=== PATIENT | female | born 1950 | race Caucasian/White ===

== ENCOUNTER 2017-03-07 13:37 | Outpatient (CLI) ==
--- NOTE | 2017-03-09 11:03 | MAMMO ---
EXAM: Bilateral digital screening mammogram History: Screening. Comparison: Bilateral mammogram 01/31/2013 Findings: MLO and CC views of bilateral breasts demonstrate heterogeneously dense breast parenchyma which can obscure small lesions. There are no dominant masses, no suspicious microcalcifications a nd no architectural distortions Impression: Stable negative mammogram. Recommend followup routine screening mammography in 1 year. BIRADS 1
== END 2017-03-07 13:38 | disposition home or self-care (01) ==
LOC: RAD 13:37
PROVIDERS: ATTEND Family Medicine
DX: Z12.31 Encounter for screening mammogram for malignant neoplasm of breast (principal)
CPT/HCPCS: 77067

== ENCOUNTER 2018-05-21 08:48 | Outpatient (CLI) ==
--- NOTE | 2018-05-21 10:37 | MRI ---
EXAM: MRI right shoulder without contrast. HISTORY: Pain. Osteoarthritis. No right shoulder surgery reported. Injury on April 23. Pain rad iating down into arm.. TECHNIQUE: Using a local coil on a high field strength magnet multiplanar multisequence MRI was perf ormed of the right shoulder without intravenous or intra-articular gadolinium contrast.. FINDINGS: I do not have prior radiographs of the right shoulder available for comparison at the time of this dictation. A Type I acromion. Coracoacromial ligament/arch intact without definitive thickening. Mild right ac romioclavicular joint degenerative arthrosis/osteoarthrosis. Deltoid musculature within normal limit s signal intensity. Trace fluid subacromial/subdeltoid bursa. Muscle bulk of the rotator cuff shows no overt atrophy or acute muscle strain. Marked diffuse supras pinatus tendinosis. Tiny insertional fissuring/rim rent tearing. Some bursal sided fraying. Mud Analysis Operator ior there is infraspinatus tendinosis involving cranial fibers with tiny rim rent tear/fissuring as w ell. No full-thickness rotator cuff tear identified. Posterior inferior intact teres minor tendon f ibers. Some degenerative cyst formation posterior greater tuberosity. Anterior intact subscapularis tendon fibers. The long head of the biceps tendon shows intact fibers located in expected position within the bicipital groove with tendinosis/tenosynovitis. The right humeral head within normal limit in morphology and seated. Mild/moderate right glenohumera l joint osteoarthrosis. Joint centered marginal osteophyte formation. Subchondral remodeling/edema/ cyst formation anterior inferior. Right glenohumeral joint effusion. Questionable degeneration of th e posterior-superior right glenoid labrum on this non-arthrographic examination.. IMPRESSION: Mild right acromioclavicular joint degenerative arthrosis/osteoarthrosis. Marked diffuse supraspinatus tendinosis. Tiny insertional fissuring/rim rent tearing. Some bursal s ided fraying. Posterior infraspinatus tendinosis involving cranial fibers with tiny rim rent tear/fi ssuring as well. No full-thickness rotator cuff tear identified. Trace fluid subacromial/subdeltoid bursa may reflect an overlying degree bursitis and/or be sequelae of prior shoulder injection. Ayanna elate clinically. Proximal long head biceps tendinosis/tenosynovitis. Mild/moderate right glenohumeral joint osteoarthrosis. Right glenohumeral joint effusion. Questiona ble degeneration of the posterior-superior right glenoid labrum on this non-arthrographic examination . Recommendation is obtainment and correlation with plain film radiographs of the right shoulder as non e are available for comparison at the time of this dictation.
== END 2018-05-21 08:49 | disposition home or self-care (01) ==
LOC: RAD 08:48
PROVIDERS: ATTEND Family Medicine
DX: M19.90 Unspecified osteoarthritis, unspecified site (principal); M25.511 Pain in right shoulder

== ENCOUNTER 2018-08-28 11:00 | Outpatient (RCR) ==
--- NOTE | 2018-08-21 11:34 | RS.OPPTEV2 ---
Date of Note: 08/19/18 Visit #: 1 Number of visits approved by Insurance: NA Date of Evaluation: 08/19/18 Payer Source: MEDICARE Date of Onset/Injury/Change in Status: 07/31/18 Surgery Performed?: Yes Procedure Performed: Right shoulder arthroscopic debridement, distal clavicle excision, biceps tenotomy, and chondroplasty of the glenoid and humeral head. Date of Procedure: 07/31/18 Treatment Diagnosis: right shoulder pain, shoulder stiffness History of Condition/Mechanism of Injury:: Pt reports progressive shoulder pain and loss of function. We saw her in May for a HEP for the right shoulder as ordered by her physician. She had an injection in the shoulder in May, as well, that did not give her any relief of pain. Prior Level of Function.....Patient was independent with: ADL's, Self Care, Work /Vocation, Caregiving, Ambulation/Mobility, Community Integration/Access Functional Limitations: Sleep, Self Care, ADL's, Reaching, Pushing, Pulling, Lifting, Carrying, Community Access/Integration Current Subjective/complaints:: Mr. Luke reports being in a sling for two weeks. States she is icing the shoulder. She has not taken much pain medication. Reports taking Aleve occasionally. She had her stitches out last week and was also told to stop wearing the sling. She is right hand dominant. She is limited in use of the right UE for selfcare and ADL's since surgery. Reports difficulty washing/styling her hair. She also reports limited sleep due to shoulder pain. She has had no problems with the left shoulder. She denies any tingling or numbness in the right UE. 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 States she will not have to lift over 30 lbs. Treatment Side (optional): Right Medical History Medical History: Unremarkable Surgical History: Hysterectomy Smoking Status: Former smoker Hx Home Medications: protonix, carafate, zoloft, bentyl, ambien Patient's Goals: Her goal is to regain pain-free functional AROM of the right shoulder and return to work. Pain Assessment - Pain Description Pain Location: right shoulder Current Pain Intensity: not quantified Worst Pain Intensity: not quantified Functional Outcome Measure UE Functional Index: 36 (36/80=55% impairment) - G Codes & Severity Modifier G Codes & Modifier: NA Source of G Code score: NA Observation - Observation Inspection: Patient presents with no sling to the right shoulder. Posture: Forward Head, Rounded Shoulders Handedness: Right Shoulder ROM: Left WFL's Shoulder Muscle Strength: Left WFL's - Right Shoulder ROM Comments: PROM of the right shoulder: flexion 130 degrees, abduction 110 degrees, ER 45 degrees, IR 40 degrees. Full ROM of the right elbow, wrist, and hand. AROM not tested due to surgical report not received at the time of evaluation. - Right Shoulder Strength Comments: Right shoulder strength not assessed due to surgery report not available at time of evaluation. Pest Controller Strength Left Hand Pest Controller Strength: 40 lbs. Right Hand Pest Controller Strength: 36 lbs. Dynamometer Testing Position: 2nd Position Sensation - Sensation Right Upper Extremity: Intact/Normal Left Upper Extremity: Intact/Normal Interventions - Exercise/Activities/Manual Therapy Exercises/Activities: Mrs. Luke received PROM to the right shoulder in all ranges, avoiding pain. She was instructed to continue icing the shoulder and in HEP of pendulum, scapular retraction and active elbow, wrist, and hand ROM. Instructed patient to let pain be her guide and not to perform any heavy lifting with the right UE. Total minutes of Exercise: X 10 mins Manual Therapy: Na HOME EXERCISE PROGRAM: pendulum, scapular retraction and active elbow, wrist, and hand ROM. - Charges Timed Code Treatment Minutes: 10 mins Total Treatment Time: 42 mins Procedures billed for this date of service:: EVAL low, Ex EVALUATION COMPLEXITY LEVEL EVALUATION COMPLEXITY LEVEL: HISTORY: Low, EXAM OF BODY SYSTEMS: Low, CLINICAL PRESENTATION: Medium, CLINICAL DECISION MAKING: Low Assessment Assessment: Mrs. Luke presents to therapy almost three weeks s/p right shoulder arthroscopy. She demonstrates limited PROM of the right shoulder. Exact type of surgery was unknown at the time of evaluation, so AROM was not measured. She reports difficulty sleeping due to right shoulder discomfort and limited ability with selfcare or ADL's. Surgery report received following evaluation. Patient demonstrates great potential to regain functional AROM and strength to return to work and her previous level of function. Patient Education: Education of diagnosis, Body/Joint mechanics, Home Exercise Program, Home Safety, Activity Modification, Education of Plan of Care Rehab Potential: Good Short Term Goals Goal #1: Pt independent and compliant with HEP. Goal to be met by: 09/02/18 Goal #2: Right shoulder PROM WNL's. Goal to be met by: 09/02/18 Goal #3: Right shoulder active flexion and extension to 90 degrees without pain. Goal to be met by: 09/02/18 Goal #4: Pt to demonstrate improved postural awareness. Goal to be met by: 09/02/18 [facility] Goals Goal #1: Pt knows HEP and to continue ex's to maintain level of function at D/c. Goal to be met by: 10/03/18 Goal #2: Score on UE functional index improved to 60/80. Goal to be met by: 10/03/18 Goal #3: R shoulder AROM WFL's to perform all selfcare and ADL's independently. Goal to be met by: 10/03/18 Goal #4: Pt able to sleep through the night w/o interruption from R shoulder pain. Goal to be met by: 10/03/18 Plan - Treatment to be Provided Procedures: Therapeutic Exercises, Therapeutic Activity, Manual Therapy, Patient Education Modalities: Cryotherapy - Treatment Plan Frequency: 2-3 X week Duration: 4 weeks Dates of State Wildlife Officer Goals: 10/03/18 Expiration date of current Insurance Approval:: NA - Treatment Code (1) Shoulder pain Code(s): M25.519 - PAIN IN UNSPECIFIED SHOULDER Qualifiers: Chronicity: acute Laterality: right Qualified Code(s): M25.511 - Pain in right shoulder (2) Shoulder stiffness Qualifiers: Laterality: right Qualified Code(s): M25.611 - Stiffness of right shoulder , not elsewhere classified (3) S/P shoulder surgery Code(s): Z98.89 - OTHER SPECIFIED POSTPROCEDURAL STATES * DO NOT USE * Comments: Z98.890
--- NOTE | 2018-08-21 11:41 | RS.OPPTDN ---
Subjective Date of Note: 08/21/18 Visit #: 2 Number of visits approved by Insurance: NA Date of Evaluation: 08/19/18 Payer Source: MEDICARE Treatment Diagnosis: right shoulder pain, shoulder stiffness Current Subjective/complaints:: Patient reports right shoulder being sore from sleeping on the right side. States she continues to ice the right shoulder. Interventions - Exercise/Activities/Manual Therapy Exercises/Activities: Mrs. Luke received PROM to the right shoulder in all ranges. Reports minimal discomfort at endrange with flexion and abduction. Tolerates Passive flexion in supine to 130 degrees, scaption to 130 degrees, abduction to 115-120 degrees, ER to 55 degrees. In sitting, Mrs. Luke demos. AROM of the right shoulder flexion to 100 degrees, abduction to 95 degrees. Instructed in additional exercises for home of AROM to shoulder height into flexion and abduction. Advised to limit range or perform in the pendulum position to avoid pain. Also gave patient yellow and red theraband for resisted bilateral shoulder ER and resisted scapular retraction. Reviewed and explained operative report with patient. Total minutes of Exercise: X 36 mins Manual Therapy: Na HOME EXERCISE PROGRAM: pendulum, scapular retraction and active elbow, wrist, and hand ROM., AROM to shoulder height into flexion and abduction, yellow and red bands for resisted ER and scapular retraction. - Charges Timed Code Treatment Minutes: 36 mins Total Treatment Time: 40 mins Procedures billed for this date of service:: EX2 Assessment: Lupis presents today with soreness from sleeping on the right shoulder last night. Reports complaint with HEP and icing the shoulder. She goes for a follow appointment on 08/29/18 and she hopes to be released to return to work. Patient Education: Education of diagnosis, Body/Joint mechanics, Home Exercise Program, Activity Modification, Education of Plan of Care Patient demonstrates compliance with HEP?: Yes Short Term Goals Goal #1: Pt independent and compliant with HEP. Goal to be met by: 09/02/18 Progress towards Goal:: Progressing Goal #2: Right shoulder PROM WNL's. Goal to be met by: 09/02/18 Progress towards Goal:: Progressing Goal #3: Right shoulder active flexion and extension to 90 degrees without pain. Goal to be met by: 09/02/18 Progress towards Goal:: Progressing Goal #4: Pt to demonstrate improved postural awareness. Goal to be met by: 09/02/18 [facility] Goals Goal #1: Pt knows HEP and to continue ex's to maintain level of function at D/c. Goal to be met by: 10/03/18 Progress towards goal: Progressing Goal #2: Score on UE functional index improved to 60/80. Goal to be met by: 10/03/18 Goal #3: R shoulder AROM WFL's to perform all selfcare and ADL's independently. Goal to be met by: 10/03/18 Goal #4: Pt able to sleep through the night w/o interruption from R shoulder pain. Goal to be met by: 10/03/18 Plan Dates of [facility] Goals: 10/03/18 Expiration date of current Insurance Approval:: NA PLAN: Progress PROM and AROM activities.
--- NOTE | 2018-08-23 11:01 | RS.OPPTDN ---
Subjective Date of Note: 08/23/18 Visit #: 3 Number of visits approved by Insurance: NA Date of Evaluation: 08/19/18 Payer Source: MEDICARE Treatment Diagnosis: right shoulder pain, shoulder stiffness Current Subjective/complaints:: Patient reports no pain in the R shoulder today, just intermittent aching. Pain Assessment - Pain Description Pain Location: R shoulder Pain Description: Dull, Aching Current Pain Intensity: 0 Interventions - Exercise/Activities/Manual Therapy Exercises/Activities: 35 mins. PROM ,isometrics,AAROM ,multiple reps each.3# wand exercises in supine for flexion ,chest press,abduction.Ended session jelly postural exercise education ,including scapular motion ,shoulder circles,shrugs. Total minutes of Exercise: 35 Manual Therapy: Na Total minutes of Manual Therapy: 0 HOME EXERCISE PROGRAM: pendulum, scapular retraction and active elbow, wrist, and hand ROM., AROM to shoulder height into flexion and abduction, yellow and red bands for resisted ER and scapular retraction. - Objective Findings Observations,measurements,etc.: AAROM shoulder flexion is 155,IR/ER is 55, abduction WNL. - Charges Timed Code Treatment Minutes: 35 Total Treatment Time: 35 Procedures billed for this date of service:: ex2 Assessment: Progressing well has functional ROM with minimal to no pain today.She has good understanding of HEP.She is compliant and motivated to improve ,return to PLOF. Patient Education: Education of diagnosis, Body/Joint mechanics, Home Exercise Program, Home Safety, Activity Modification, Education of Plan of Care Patient demonstrates compliance with HEP?: Yes Short Term Goals Goal #1: Pt independent and compliant with HEP. Goal to be met by: 09/02/18 Progress towards Goal:: Progressing Goal #2: Right shoulder PROM WNL's. Goal to be met by: 09/02/18 Progress towards Goal:: Met Goal #3: Right shoulder active flexion and extension to 90 degrees without pain. Goal to be met by: 09/02/18 Progress towards Goal:: Progressing Goal #4: Pt to demonstrate improved postural awareness. Goal to be met by: 09/02/18 Progress towards Goal:: Progressing Licensed Optical Dispenser Goals Goal #1: Pt knows HEP and to continue ex's to maintain level of function at D/c. Goal to be met by: 10/03/18 Progress towards goal: Progressing Goal #2: Score on UE functional index improved to 60/80. Goal to be met by: 10/03/18 Goal #3: R shoulder AROM WFL's to perform all selfcare and ADL's independently. Goal to be met by: 10/03/18 Progress towards goal: Progressing Goal #4: Pt able to sleep through the night w/o interruption from R shoulder pain. Goal to be met by: 10/03/18 Progress towards goal: Progressing Plan Dates of [facility] Goals: 10/03/18 Expiration date of current Insurance Approval:: NA PLAN: Cont. PT to return the R shoulder to PLOF.
--- NOTE | 2018-08-26 10:58 | RS.OPPTDN ---
Subjective Date of Note: 08/26/18 Visit #: 4 Number of visits approved by Insurance: NA Date of Evaluation: 08/19/18 Payer Source: MEDICARE Treatment Diagnosis: right shoulder pain, shoulder stiffness Current Subjective/complaints:: Reports occasional dull ache in the R shoulder , but otherwise doing well. Pain Assessment - Pain Description Pain Location: R shoulder Pain Description: Dull, Aching Current Pain Intensity: 0 Interventions - Exercise/Activities/Manual Therapy Exercises/Activities: 35 mins. PROM ,isometrics,AROM ,multiple reps each.4# wand exercises in supine for flexion ,chest press,abduction.Sitting exercises of the same motion as supine.Postural pullbacks with yellow t-band at shoulder height ,then pull downs from over head,15 each. Total minutes of Exercise: 35 Manual Therapy: Na Total minutes of Manual Therapy: 0 HOME EXERCISE PROGRAM: pendulum, scapular retraction and active elbow, wrist, and hand ROM., AROM to shoulder height into flexion and abduction, yellow and red bands for resisted ER and scapular retraction. - Charges Timed Code Treatment Minutes: 35 Total Treatment Time: 35 Procedures billed for this date of service:: ex 2 Short Term Goals Goal #1: Pt independent and compliant with HEP. Goal to be met by: 09/02/18 Progress towards Goal:: Met Goal #2: Right shoulder PROM WNL's. Goal to be met by: 09/02/18 Progress towards Goal:: Met Goal #3: Right shoulder active flexion and extension to 90 degrees without pain. Goal to be met by: 09/02/18 Progress towards Goal:: Met Goal #4: Pt to demonstrate improved postural awareness. Goal to be met by: 09/02/18 Progress towards Goal:: Met Skilled Nursing Goals Goal #1: Pt knows HEP and to continue ex's to maintain level of function at D/c. Goal to be met by: 10/03/18 Progress towards goal: Progressing Goal #2: Score on UE functional index improved to 60/80. Goal to be met by: 10/03/18 Goal #3: R shoulder AROM WFL's to perform all selfcare and ADL's independently. Goal to be met by: 10/03/18 Progress towards goal: Progressing Goal #4: Pt able to sleep through the night w/o interruption from R shoulder pain. Goal to be met by: 10/03/18 Progress towards goal: Progressing Plan Dates of Skilled Nursing Goals: 10/03/18 Expiration date of current Insurance Approval:: NA PLAN: Cont. skilled PT ,patient has follow-up appt this .We discussed initiating the D/C plan if the agrees ,as she is pain free with all motions.
--- NOTE | 2018-08-28 11:57 | RS.OPPTDN ---
Subjective Date of Note: 08/28/18 Visit #: 5 Number of visits approved by Insurance: NA Date of Evaluation: 08/19/18 Payer Source: MEDICARE Treatment Diagnosis: right shoulder pain, shoulder stiffness Current Subjective/complaints:: Patient reports she is pleased with her progress ,has no pain ,able to do her ADL's without difficulty. Pain Assessment - Pain Description Pain Location: R shoulder Current Pain Intensity: 0 Interventions - Exercise/Activities/Manual Therapy Exercises/Activities: 35 mins. ,isometrics,AROM ,multiple reps each.5# wand exercises in supine for flexion ,chest press,abduction.IR/ER with red t-band ,3/ 15 each.ReviewedHEP ,including postural awareness. Total minutes of Exercise: 35 Manual Therapy: Na Total minutes of Manual Therapy: 0 HOME EXERCISE PROGRAM: pendulum, scapular retraction and active elbow, wrist, and hand ROM., AROM to shoulder height into flexion and abduction, yellow and red bands for resisted ER and scapular retraction. - Charges Timed Code Treatment Minutes: 35 Total Treatment Time: 35 Procedures billed for this date of service:: ex 2 Short Term Goals Goal #1: Pt independent and compliant with HEP. Goal to be met by: 09/02/18 Progress towards Goal:: Met Goal #2: Right shoulder PROM WNL's. Goal to be met by: 09/02/18 Progress towards Goal:: Met Goal #3: Right shoulder active flexion and extension to 90 degrees without pain. Goal to be met by: 09/02/18 Progress towards Goal:: Met Goal #4: Pt to demonstrate improved postural awareness. Goal to be met by: 09/02/18 Progress towards Goal:: Met Steam Plant Operator Goals Goal #1: Pt knows HEP and to continue ex's to maintain level of function at D/c. Goal to be met by: 10/03/18 Progress towards goal: Met Goal #2: Score on UE functional index improved to 60/80. Goal to be met by: 10/03/18 (79/80) Progress towards goal: Met Goal #3: R shoulder AROM WFL's to perform all selfcare and ADL's independently. Goal to be met by: 10/03/18 Progress towards goal: Met Goal #4: Pt able to sleep through the night w/o interruption from R shoulder pain. Goal to be met by: 10/03/18 Progress towards goal: Met Plan Dates of [facility] Goals: 10/03/18 Expiration date of current Insurance Approval:: NA PLAN: Patient has follow-up appt. tomorrow at [facility] in [place], [place]. Plan to D/C due to good progress,unless the DrMichelle orders state otherwise.
--- NOTE | 2018-08-30 09:19 | RS.CSNOTE ---
PT Case Note Date of Note: 08/30/18 Title of document: Patient Status Note: Patient called yesterday, 08-29-18 ,had follow-up appt. @ [facility] in [place], [place]. ,rleeased form therapy due to good progress. Number of visits approved by Insurance: NA Expiration date of current Insurance Approval:: NA
--- NOTE | 2018-08-30 13:13 | RS.QUICKDC ---
Discharge from PT Date of Discharge: 08/29/18 Number of Visits: 5 Reason for Discharge: Mrs. Luke had a follow up with her surgeon and she was told she could stop therapy due to her good progress. She met all goals. On last visit, reported 0/10 pain. Demonstrated AROM WNL's of the shoulder in all directions. Patient discharged at this time.
== END 2018-09-12 23:59 ==
PROVIDERS: ATTEND Orthopaedic Surgery
DX: M67.911 Unspecified disorder of synovium and tendon, right shoulder (principal); M25.511 Pain in right shoulder; M25.611 Stiffness of right shoulder, not elsewhere classified; Z98.890 Other specified postprocedural states

== ENCOUNTER 2024-04-25 13:46 | Observation (INO) ==
[2024-04-25 14:02] VITALS: BMI 18.1
--- NOTE | 2024-04-25 14:24 | ED.PDOC ---
General ED Provider: Dr. CURTIS FONTAINE MD Chief Complaint: Dizziness Stated Complaint: Patient is a 74-year-old female that reported to the emergency department for dizziness. Patient stated that approximately 4 hours ago she was at home and she was combing her hair when she got very dizzy. Patient stated that she did not pass out. Patient stated that she had no previous head injury. Patient stated that after her dizziness spell she was able to go to bed and lay down. Patient stated that she called a neighbor because she was worried about her dizziness. She stated that she started to have tingling around her lips. Patient stated that she did not fall or did not lose the ability to use her limbs. Patient stated that she was able to have cohesive sentences and remembers the episode. Patient stated that she has never had an episode of dizziness before. Patient states that she has a history of thyroid cancer with thyroidectomy and hypotension. Patient stated that nothing made her symptoms worse or better. Patient stated that her symptoms have resolved prior to coming to the emergency department however she wanted to be checked out. Patient denies any chest pain, shortness of breath, nausea, vomiting, diarrhea, syncope, loss of consciousness, headache, fever, or any other acute symptoms not currently mentioned in HPI. Patient did state that she had some diaphoresis with her dizziness episode. Patient's vital signs are stable. Patient's VAN score is negative. Patient's GCS is 15. Time Seen by Provider: 04/25/24 13:53 Mode of Arrival: Walk-In Information Source: Patient Exam Limitations: No limitations Primary Care Provider: RACHEL OLIVER Nursing and Triage Documentation Reviewed and Agree: Yes Does Patient Take Opioids?: No Is Patient Opioid Naive?: No What is Opioid Naive?: *Opioid Naive implies the patient is not already taking opioids or not chronically receiving opioids on a daily basis. *PRN dosing is not "usually" associated with tolerance. *Patients are at higher risk of over-sedation and aspiration. Is Patient Opioid Tolerant?: No What is Opioid Tolerant?: *Opioid Tolerance implies less than the expected response to an opioid. *Acquired tolerance is defined by the patient taking 60mg of oral morphine daily (or equianalgesic dose of another opioid) for 1 week or more. *Often associated with chronic pain. *May take more than usual dose to achieve desired pain control. Review of Systems Review Of Systems Constitutional: Reports No symptoms Eyes: Reports No symptoms Ears, Nose, Mouth, Throat: Reports No symptoms Respiratory: Reports No symptoms Cardiac: Reports No symptoms GI: Reports No symptoms : Reports No symptoms Musculoskeletal: Reports No symptoms Skin: Reports No symptoms Neurological: Reports Tingling (Tingling in lips.) and Other (Dizziness.) Endocrine: Reports No symptoms Hematologic/Lymphatic: Reports No symptoms All Other Systems: Reviewed and Negative FOR[facility]LY [facility] Social History Smoking and tobacco status: Former smoker Physical Exam Physical Exam Appearance: Reports Well-appearing, No pain distress and Well-nourished Ill-appearing: None Pain Distress: None Eyes: Reports MAURICIO, EOMI and Conjunctiva clear ENT: Reports Nose normal and Oropharynx normal Neck: Supple Respiratory: Reports Airway patent, Breath sounds clear, Breath sounds equal and Respirations nonlabored Cardiovascular: Reports RRR, Pulses normal, No rub and No murmur GI/: Reports Soft, Nontender, No masses and Bowel sounds normal Musculoskeletal: Reports Normal strength, ROM intact, No edema and No calf tenderness Skin: Reports Warm, Dry and Normal color Neurological: Reports Sensation intact, Motor intact, Reflexes intact, Cranial nerves intact, Alert and Oriented Psychiatric: Reports Affect appropriate and Mood appropriate NIH Stroke Scale 1a. Level of Consciousness: 0=Alert and keenly responsive 1b. Level of Consciousness Questions: 0=Answers correctly to two questions 2. Best Gaze: 0=Normal 3. Visual: 0=No visual loss 4. Facial Palsy: 0=Normal 5a. Motor Left Arm: 0=No drift,arm holds 90 degrees for 10 sec., leg 30 degrees for 5 sec. 5b. Motor Right Arm: 0=No drift,arm holds 90 degrees for 10 sec., leg 30 degrees for 5 sec. 6a. Motor Left Le=No drift,arm holds 90 degrees for 10 sec., leg 30 degrees for 5 sec. 6b. Motor Right Le=No drift,arm holds 90 degrees for 10 sec., leg 30 degrees for 5 sec. 7. Limb Ataxia: 0=Absent 8. Sensory: 0=Normal 9. Best Language: 0=No aphasia 10. Dysarthria: 0=Normal 11. Extincion and Inattention: 0=Normal Stroke Scale Total: 0 Course Course 04/25/24 14:27 04/25/24 14:27 Orders, Labs, Meds: Lab Review 04/25/24 04/25/24 14:27 15:27 WBC 8.60 RBC 2.99 L Hgb 11.7 L Hct 34.8 L MCV 116.4 H MCH 39.1 H MCHC 33.6 RDW Coeff of Karine 13.0 Plt Count 356 Immature Gran % (Auto) 1.2 Neut % (Auto) 79.7 H Lymph % (Auto) 8.8 L Runnels % (Auto) 10.0 Eos % (Auto) 0.1 Baso % (Auto) 0.2 Neut # (Auto) 6.9 Lymph # (Auto) 0.8 Runnels # (Auto) 0.9 Eos # (Auto) 0.0 Baso # (Auto) 0.0 Immature Gran # (Auto) 0.1 PT 9.6 INR 0.92 APTT 23.0 L Sodium 138.6 Potassium 3.85 Chloride 101.5 Carbon Dioxide 26.9 Anion Gap 14.05 BUN 29.0 H Creatinine 1.10 Estimated GFR (MDRD) 49.00 BUN/Creatinine Ratio 26.36 Glucose 108.9 H Calcium 9.07 Total Bilirubin 0.35 AST 75.7 H ALT 35.9 H Alkaline Phosphatase 67.9 Troponin I < 0.012 0.013 Total Protein 7.70 Albumin 4.76 Globulin 2.94 Albumin/Globulin Ratio 1.61 Orders Category Date Time Status EKG-(ED ONLY) Stat CARDIO 04/25/24 14:16 Completed NOTHING BY MOUTH DIETARY 04/25/24 Dinner Ordered ED ACCUCHECK ASSESSMENT .ONCE EMERGENCY 04/25/24 14:16 Active ED APPLY O2 .ONCE EMERGENCY 04/25/24 14:16 Active ED VIDEO GAME PRODUCER APPLIED .ONCE EMERGENCY 04/25/24 14:16 Active ED IV/MEDIPORT/POWERPORT .ONCE EMERGENCY 04/25/24 14:16 Active ED ORTHOSTATIC VITAL SIGNS .ONCE EMERGENCY 04/25/24 14:16 Active CBC W/ AUTO DIFF Stat LAB 04/25/24 14:27 Completed COMPREHENSIVE METABOLIC PANEL Stat LAB 04/25/24 14:27 Completed PARTIAL THROMBOPLASTIN TIME Stat LAB 04/25/24 14:27 Completed PT WITH INR Stat LAB 04/25/24 14:27 Completed TROPONIN I Stat LAB 04/25/24 14:27 Completed TROPONIN I Stat LAB 04/25/24 15:27 Completed 0.9 % Sodium Chloride [Saline Flush] Meds 04/25/24 14:16 Active 1 syr IVF PRN PRN Sodium Chloride 0.9% [Sodium Chloride] 1,000 ml Meds 04/25/24 15:01 Discontinued IV BOLUS CHEST, 1V AP ONLY Stat RADS 04/25/24 14:[address] HEAD W/O CONTRAST Stat RADS 04/25/24 14:16 Completed Medications Generic Name Dose Route Start Last Admin Trade Name Freq PRN Reason Stop Dose Admin Sodium Chloride 1 syr 04/25/24 14:16 0.9% Sodium Chloride 10 Ml Disp.Syrin IVF PRN PRN To flush IV Discontinued Medications Generic Name Dose Route Start Last Admin Trade Name Freq PRN Reason Stop Dose Admin Sodium Chloride 1,000 mls @ 1,000 mls/hr 04/25/24 15:01 04/25/24 15:28 Sodium Chloride IV 04/25/24 16:00 1,000 mls/hr BOLUS ONE Administration Vital Signs: Temp Pulse Resp BP Pulse Ox 04/25/24 13:51 96.8 F L 66 18 161/105 H 98 Physician Progress Note: Patient is a 74-year-old female that reported to the emergency department for dizziness. Patient stated that approximately 4 hours ago she was at home and she was combing her hair when she got very dizzy. Patient stated that she did not pass out. Patient stated that she had no previous head injury. Patient stated that after her dizziness spell she was able to go to bed and lay down. Patient stated that she called a neighbor because she was worried about her dizziness. She stated that she started to have tingling around her lips. Patient stated that she did not fall or did not lose the ability to use her limbs. Patient stated that she was able to have cohesive sentences and remembers the episode. Patient stated that she has never had an episode of dizziness before. Patient states that she has a history of thyroid cancer with thyroidectomy and hypotension. Patient stated that nothing made her symptoms worse or better. Patient stated that her symptoms have resolved prior to coming to the emergency department however she wanted to be checked out. Patient denies any chest pain, shortness of breath, nausea, vomiting, diarrhea, syncope, loss of consciousness, headache, fever, or any other acute symptoms not currently mentioned in HPI. Patient did state that she had some diaphoresis with her dizziness episode. Patient's vital signs are stable. Patient's VAN score is negative. Patient's GCS is 15. -Will order CT of the head to rule out intercranial pathology. -Will order EKG, troponin, and baseline labs. -EKG shows sinus bradycardia with a rate of 59 bpm. Left axis deviation noted. Left bundle branch block noted. QTc 493 ms and FL interval [address] elevations noted. This was interpreted by the ER physician. -Chest x-ray shows no acute cardiopulmonary disease. Cardiomegaly is noted. This was interpreted by the ER physician. -CBC shows anemia of chronic disease with a hemoglobin of 11 and hematocrit of 34. Otherwise unremarkable CBC. CMP shows an elevated BUN of 29 showing that the patient is dehydrated. Patient also has slightly elevated ALT of 35 and an AST of 75. - Will give the patient IV normal saline 1 L bolus for dehydration. -CT of the brain shows no acute intercranial pathology. Chronic small ischemic vessels changes noted. Cerebral atrophy noted. -Troponin negative. -Second troponin negative -Spoke to hospitalist, Maged Wong NP who has agreed to accept the pt for observation pending a second troponin. Pt will be admitted for TIA, dehydration, and near syncope. Discharge Plan Discharge Patient Disposition: PLACED OBSERVATION Discharge Problem: Dizziness, TIA (transient ischemic attack), Near syncope, Dehydration Did you review [place] [facility] for ALL controlled substances?: Not Applicable ED Provider: CURTIS FONTAINE Condition: Stable [place] Coma Scale [place] Coma Scale Eye Opening Response: Spontaneously Best Verbal Response: Oriented to Time, Place, and Person Best Motor Resposne: Obeys Commands Lynette Coma Scale Score Total: 15 Response Scores: Best Response = 15 Comatose Client = 8 or Less Totally Unresponsive = 3
[2024-04-25 14:40] LABS: BASOPHILS % (AUTO) 0.2 % (0.0-3.0); EOSINOPHILS % (AUTO) 0.1 % (0.0-7.0); HEMATOCRIT 34.8 % (37.0-47.0); HEMOGLOBIN 11.7 g/dl (12.0-16.0); IMMATURE GRANULOCYTE # (AUTO) 0.1 (0.0-1.0); IMMATURE GRANULOCYTE % (AUTO) 1.2 % (0.0-5.0); LYMPHOCYTES # (AUTO) 0.8 K/uL (0.60-3.4); LYMPHOCYTES % (AUTO) 8.8 (10.0-50.0); MEAN CORPUSCULAR HEMOGLOBIN 39.1 pg (27.0-31.0); MEAN CORPUSCULAR HGB CONC 33.6 (31.8-35.4); MEAN CORPUSCULAR VOLUME 116.4 fl (81.0-99.0); MONOCYTES # (AUTO) 0.9 K/uL (0.4-2.0); NEUTROPHILS # (AUTO) 6.9 K/ul (2.0-6.9); NEUTROPHILS % (AUTO) 79.7 % (42.2-75.2); PLATELET COUNT 356 10^3/uL (140-440); RED BLOOD COUNT 2.99 10^6/ul (4.20-5.40)
[2024-04-25 14:48] LABS: ALANINE AMINOTRANSFERASE 35.9 U/L (0-35); ALBUMIN 4.76 g/dL (3.5-5.0); ALKALINE PHOSPHATASE 67.9 U/L (53-141); ASPARTATE AMINO TRANSFERASE 75.7 U/L (14-36); BILIRUBIN,TOTAL 0.35 mg/dL (0.2-1.3); CALCIUM 9.07 mg/dL (8.4-10.2); CARBON DIOXIDE 26.9 mmol/L (22-30.0); CHLORIDE 101.5 mmol/L (98-107); GLUCOSE 108.9 mg/dL (74-106); POTASSIUM 3.85 mmol/L (3.5-5.1); SODIUM 138.6 mmol/L (134.5-145)
--- NOTE | 2024-04-25 14:54 | DI ---
EXAM: AP CHEST. HISTORY: Dizziness. FINDINGS: The cardiac silhouette is enlarged. The pulmonary vasculature is within normal limits. Th e costophrenic angles are clear. No infiltrate or consolidation. Impression: Cardiomegaly.
[2024-04-25 14:57] LABS: PROTHROMBIN TIME 9.6 SEC (9.3-11.0)
[2024-04-25 15:00] LABS: TROPONIN I < 0.012 ng/ml (0.0000-0.120)
--- NOTE | 2024-04-25 15:00 | CT ---
EXAM: CT HEAD WITHOUT CONTRAST. HISTORY: Altered level of consciousness. PROCEDURE: Contiguous axial CT images of the head without contrast with coronal and sagittal reforma ts. Comparison: None. FINDINGS: There is diffuse cerebral atrophy. The ventricles and basal cisterns are normal in size an d configuration. No evidence of mass or midline shift. No intracranial hemorrhage or evidence of la rge vessel infarct. No extra-axial fluid collection. There are chronic small vessel ischemic change s in the white matter. The paranasal sinuses and mastoid air cells are normal in appearance. Impression: No intracranial hemorrhage or evidence of large vessel infarct. Chronic small vessel ischemic changes. Diffuse cerebral atrophy. All CT scans are performed using dose optimization techniques as appropriate to the performed exam an d include at least one of the following: Automated exposure control, adjustment of the mA and/or kV according t o size, and the use of iterative reconstruction technique.
[2024-04-25] MEDS: SODIUM CHLORIDE 1,000 ML IV ONE (15:28)
[2024-04-25 16:58] LABS: SARS COV-2 RNA RAPID NAAT NEGATIVE (NEGATIVE)
[2024-04-25] MEDS ORDERED: TYLENOL PO PRN (17:16)
[2024-04-25] MEDS ORDERED: NORCO 5-325 PO PRN ×2 (19:20→22:10)
[2024-04-25 19:21] LABS: TROPONIN I 0.019 ng/ml (0.0000-0.120)
--- NOTE | 2024-04-25 19:29 | PCM ---
Date of Service Date Seen by Provider: 04/25/24 Time Seen by Provider: 17:30 Admit Day/Time Admission Date: 04/25/24 Reason for Admission Chief Complaint: TIA,DEHYDRATION,NEAR SYNCOPE Hospital Provider Hospital Provider: ALEXANDER AUGUSTIN MD, [facility] Primary Care Physician Primary Care Physician: RACHEL OLIVER History of Present Illness History of Present Illness: 74 yo female presented to the ER following a near syncopal episode. Reports she was blow drying her hair and began to feel dizzy/lightheaded. Decided she needed to lay down to rest. Her neighbor called her shortly after she laid down and reported she was slurring her words. NIH 0 on arrival to ER and at this time. Symptoms have resolved. Denies chest pain, palpitations, vision changes, sob, unilateral weakness, or other symptoms. Per her Epic Chart, she saw Dr. Castillo on 04/10 for dizziness and her BP was 100/68 in the office. He stopped her losartan and she was to see him again in 2 weeks. Has pmh of afib and follows with Dr. Paige at [facility]. Had dizzy episodes back in 2020 and wore a holter monitor that showed multiple episodes of SVT and Vtach. Admitted to med/surg observation. Case Discussed With Case Discussed With: Patient's case was discussed with the ER Physicians, Dr.. Mcgrath. [facility] Surgical History H/O thyroidectomy E89.0 - Postprocedural hypothyroidism (ICD-10) Family History Other No known health problems Social History Smoking and tobacco status: Former smoker Allergies Allergies Allergy/AdvReac Type Severity Reaction Status Date / Time Iodinated Contrast Media AdvReac Verified 04/25/24 14:07 Penicillins AdvReac Verified 04/25/24 14:07 Current Medications Home Medications sertraline 100 mg tablet 100 mg PO DAILY 06/26/19 [History Confirmed 04/25/24 Last Taken Unknown] atorvastatin 20 mg tablet 20 mg PO DAILY 04/25/24 [History Confirmed 04/25/[address] Taken Unknown] carvedilol 3.125 mg tablet 3.125 mg PO 2XD 04/25/24 [History Confirmed 04/25/24 Last Taken Unknown] esomeprazole magnesium 40 mg capsule,delayed release 40 mg PO DAILY 04/25/24 [History Confirmed 04/25/24 Last Taken Unknown] flecainide 50 mg tablet 50 mg PO 2XD 04/25/24 [History Confirmed 04/25/24 Last Taken Unknown] furosemide 40 mg tablet 40 mg PO 2XD 04/25/24 [History Confirmed 04/25/24 Last Taken Unknown] hydrocodone 5 mg-acetaminophen 325 mg tablet 1 tab PO Q6H PRN pain 04/25/24 [History Confirmed 04/25/24 Last Taken Unknown] hydroxyurea 500 mg capsule 500 mg PO DIRECTED 04/25/24 [History Confirmed 04/25/24 Last Taken Unknown] latanoprost 0.005 % eye drops 1 drp ophthalmic (eye) QPM 04/25/24 [History Confirmed 04/25/24 Last Taken Unknown] levothyroxine 137 mcg tablet (Synthroid) 137 mcg PO DAILY 04/25/24 [History Confirmed 04/25/24 Last Taken Unknown] losartan 25 mg tablet 12.5 mg PO DAILY 04/25/24 [History Confirmed 04/25/24 Last Taken Unknown] omeprazole magnesium 20 mg tablet,delayed release (Prilosec OTC) 20 mg PO DAILY 04/25/24 [History Confirmed 04/25/24 Last Taken Unknown] pregabalin 50 mg capsule 50 - 100 mg PO BEDTIME 04/25/24 [History Confirmed 1 Last Taken Unknown] temazepam 15 mg capsule 15 mg PO BEDTIME PRN sleep 04/25/24 [History Confirmed 04/25/24 Last Taken Unknown] Home Acetaminophen (Acetaminophen 325 Mg Tablet) 650 mg PO Q4H PRN PRN Reason: Mild Pain Hydrocodone Bitart/Acetaminophen (Hydrocodone Bit/Acetaminophen 5/325 Mg Tablet) 1 tab PO Q6H PRN PRN Reason: Pain Carvedilol (Carvedilol 3.125 Mg Tablet) 3.125 mg PO 2XD ONIEL Flecainide Acetate (Flecainide Acetate 100 Mg Tablet) 50 mg PO 2XD ONIEL Furosemide (Furosemide 40 Mg Tablet) 40 mg PO 2XD ONIEL Hydroxyurea (Hydroxyurea 500 Mg Capsule) 500 mg PO DIRECTED [facility] Latanoprost (Latanoprost 2.5 Ml Opth Dinah) 1 drop EACHEYE QPM ONIEL Losartan Potassium (Losartan Potassium 25 Mg Tablet) 12.5 mg PO DAILY ONIEL Non-Formulary Medication (Esomeprazole Magnesium) 40 mg PO DAILY ONIEL Non-Formulary Medication (Omeprazole Magnesium [Prilosec Otc]) 20 mg PO DAILY ONIEL Non-Formulary Medication (Levothyroxine [Synthroid]) 137 mcg PO DAILY ONIEL Pregabalin (Pregabalin 50 Mg Capsule) 50 - 100 mg PO BEDTIME ONIEL Sertraline HCl (Sertraline Hcl 50 Mg Tablet) 100 mg PO DAILY ONIEL Sodium Chloride (0.9% Sodium Chloride 10 Ml Disp.Syrin) 1 syr IVF PRN PRN PRN Reason: To flush IV Temazepam (Temazepam 15 Mg Capsule) 15 mg PO BEDTIME PRN PRN Reason: sleep Discontinued Medications Sodium Chloride (Sodium Chloride) 1,000 mls @ 1,000 mls/hr IV BOLUS ONE Stop: 04/25/24 16:00 Last Infusion: 04/25/24 16:28 Dose: Infused Opioid Naive vs. Tolerant Does Patient Take Opioids?: Yes Is Patient Opioid Naive?: No What is Opioid Naive?: *Opioid Naive implies the patient is not already taking opioids or not chronically receiving opioids on a daily basis. *PRN dosing is not "usually" associated with tolerance. *Patients are at higher risk of over-sedation and aspiration. Is Patient Opioid Tolerant?: No What is Opioid Tolerant?: *Opioid Tolerance implies less than the expected response to an opioid. *Acquired tolerance is defined by the patient taking 60mg of oral morphine daily (or equianalgesic dose of another opioid) for 1 week or more. *Often associated with chronic pain. *May take more than usual dose to achieve desired pain control. Review of Systems Constitutional: Reports No symptoms Head: Reports Normocephalic Eyes: Reports No symptoms Ears: Reports No symptoms Nose: Reports No symptoms Mouth: Reports No symptoms Throat: Reports No symptoms Cardiovascular: Reports No symptoms Respiratory: Reports No symptoms Genitourinary: Reports No Symptoms Musculoskeletal: Reports No symptoms Endocrine: Reports No symptoms Hematology: Reports No symptoms Immunology: Reports No symptoms Neurological: Reports Dizziness, Syncope (near) and Speech difficulty Psychiatric: Reports No symptoms Physical examination Most Recent Vital Signs: Most Recent Vital Signs Temperature 98 F 04/25/24 17:32 Temperature Source Temporal Artery Scan 04/25/24 17:32 Temperature Source Temporal Artery Scan 04/25/24 13:51 Pulse Rate 65 04/25/24 17:32 Respiratory Rate 16 04/25/24 17:32 Blood Pressure 128/59 L 04/25/24 16:39 Blood Pressure Left Arm 143/86 04/25/24 17:32 Blood Pressure Location Right Arm 04/25/24 16:39 Blood Pressure Position Standing 04/25/24 16:39 O2 Sat by Pulse Oximetry 100 04/25/24 17:32 Oxygen Delivery Method Room Air 04/25/24 18:00 Height 5 ft 6 in 04/25/24 17:32 Weight 50.9 kg 04/25/24 17:32 Appearance: Positive No Apparent Distress, Alert and Oriented x3 and Thin Skin: Positive Warm and Good Turgor HEENT: Positive Normocephalic and PERRLA Neck: Positive Supple and Midline Trachea Chest/Lungs: Positive Symmetrical With Equal Breath Sounds, Clear to Auscultation Bilaterally and Good Air Movement all 4 Lung [place] Heart: Positive RRR, Pulses Normal and Murmur (systolic) GI/: Positive Soft, Nontender, Bowel Sounds Normal and No Distention Musculoskeletal: Positive Normal Gait and Station Extremities: Positive Intact Peripheral Pulses, Stable Joints Without Laxity and Good ROM in All Joints Neurological: Positive Sensation Intact, Motor intact, Alert, Oriented and Muscle Strength 5/5 in Upper and Lower Extremities Bilaterally Labs This Visit Labs This Visit: Labs This Visit 04/25/24 04/25/24 04/25/24 14:27 15:27 16:41 WBC 8.60 RBC 2.99 L Hgb 11.7 L Hct 34.8 L MCV 116.4 H MCH 39.1 H MCHC 33.6 RDW Coeff of Karine 13.0 Plt Count 356 Immature Gran % (Auto) 1.2 Neut % (Auto) 79.7 H Lymph % (Auto) 8.8 L Story % (Auto) 10.0 Eos % (Auto) 0.1 Baso % (Auto) 0.2 Neut # (Auto) 6.9 Lymph # (Auto) 0.8 Story # (Auto) 0.9 Eos # (Auto) 0.0 Baso # (Auto) 0.0 Immature Gran # (Auto) 0.1 PT 9.6 INR 0.92 APTT 23.0 L Sodium 138.6 Potassium 3.85 Chloride 101.5 Carbon Dioxide 26.9 Anion Gap 14.05 BUN 29.0 H Creatinine 1.10 Estimated GFR (MDRD) 49.00 BUN/Creatinine Ratio 26.36 Glucose 108.9 H Calcium 9.07 Total Bilirubin 0.35 AST 75.7 H ALT 35.9 H Alkaline Phosphatase 67.9 Troponin I < 0.012 0.013 Total Protein 7.70 Albumin 4.76 Globulin 2.94 Albumin/Globulin Ratio 1.61 SARS CoV-2 RNA Rapid JANAE Negative 04/25/24 Unknown WBC RBC Hgb Hct MCV MCH MCHC RDW Coeff of Karine Plt Count Immature Gran % (Auto) Neut % (Auto) Lymph % (Auto) Story % (Auto) Eos % (Auto) Baso % (Auto) Neut # (Auto) Lymph # (Auto) Story # (Auto) Eos # (Auto) Baso # (Auto) Immature Gran # (Auto) PT INR APTT Sodium Potassium Chloride Carbon Dioxide Anion Gap BUN Creatinine Estimated GFR (MDRD) BUN/Creatinine Ratio Glucose Calcium Total Bilirubin AST ALT Alkaline Phosphatase Troponin I 0.019 Total Protein Albumin Globulin Albumin/Globulin Ratio SARS CoV-2 RNA Rapid JANAE Imaging Imaging: EXAM: CT HEAD WITHOUT CONTRAST. HISTORY: Altered level of consciousness. PROCEDURE: Contiguous axial CT images of the head without contrast with coronal and sagittal reformats. Comparison: None. FINDINGS: There is diffuse cerebral atrophy. The ventricles and basal cisterns are normal in size and configuration. No evidence of mass or midline shift. No intracranial hemorrhage or evidence of large vessel infarct. No extra-axial fluid collection. There are chronic small vessel ischemic changes in the white matter. The paranasal sinuses and mastoid air cells are normal in appearance. Impression: No intracranial hemorrhage or evidence of large vessel infarct. Chronic small vessel ischemic changes. Diffuse cerebral atrophy. EKG Interpretation EKG Interpretation: sinus geri rate of 59, LBBB Review Statement Review Statement: I have independently reviewed and interpreted the labs/EKGs/imaging that were ordered by the ER provider. I have reviewed all outside records that are available currently in our EMR including imaging/notes/labs from previous visits. Plan Plan: 1. Near Syncope - telemetry, ekg without acute changes, troponins flat x 3, last echo 03/13/23 showed EF 61-65% with mod to severe tricuspid regurg, echo ordered, recommend carotid US outpatient, will send with holter monitor on discharge due to hx of Vtach and SVT 2. Afib - chronic, not in RVR, continue home medications 3. Hypertension - chronic, recently stopped losartan, monitor 4. Transaminitis - mild, trend and monitor, holding statin tonight 5. GERD - chronic, continue home medication DVT Prophylaxis: Ambulation Time Spent: Greater than 80 minutes spent with patient, 50% of the time spent with this patient was devoted to counseling and coordination of care. [facility] Plannin minutes spent discussing advance care planning. Disposition: Admit to: Med/Surg Observation DNR Discussed Plan of Care with Dr. Augustin. Medications Medication Orders: Medications Ordered Category Date Time Status 0.9 % Sodium Chloride [Saline Flush] Meds 04/25/24 14:16 Active 1 syr IVF PRN PRN Acetaminophen [Tylenol] Meds 04/25/24 17:16 Active 650 mg PO Q4H PRN Carvedilol [Coreg] Meds 04/25/24 21:00 Ordered 3.125 mg PO 2XD Flecainide Acetate [Tambocor] Meds 04/25/24 21:00 Ordered 50 mg PO 2XD Furosemide [Lasix Tab] Meds 04/25/24 09:00 Ordered 40 mg PO 2XD Hydrocodone Bit/Acetaminophen [Sieper 5-325] Meds 04/25/24 19:20 Ordered 1 tab PO Q6H PRN Hydroxyurea [Hydrea] Meds 04/25/24 19:30 Ordered 500 mg PO DIRECTED Latanoprost [Xalatan] Meds 04/26/24 17:00 Ordered 1 drop EACHEYE QPM Losartan Potassium [Cozaar] Meds 04/26/24 09:00 Ordered 12.5 mg PO DAILY Pregabalin [Lyrica] Meds 04/25/24 21:00 Ordered 50 - 100 mg PO BEDTIME Sertraline HCl [Zoloft] Meds 04/26/24 09:00 Ordered 100 mg PO DAILY Temazepam [Restoril] Meds 04/25/24 19:20 Ordered 15 mg PO BEDTIME PRN esomeprazole magnesium Meds 04/26/24 09:00 Ordered 40 mg PO DAILY levothyroxine [Synthroid] Meds 04/26/24 09:00 Ordered 137 mcg PO DAILY omeprazole magnesium [Prilosec OTC] Meds 04/26/24 09:00 Ordered 20 mg PO DAILY
[2024-04-25] MEDS ORDERED: HYDREA PO SCH (19:30)
[2024-04-25 19:40] LABS: THYROID STIMULATING HORMONE < 0.015 uIU/L (0.465-4.68)
[2024-04-25] MEDS: XALATAN EACHEYE SCH (21:46)
[2024-04-25] MEDS: TAMBOCOR PO SCH (21:47)
[2024-04-25] MEDS: COREG PO SCH (21:48)
[2024-04-25] MEDS: LYRICA PO SCH (21:48)
[2024-04-25] MEDS: RESTORIL PO PRN (21:49)
[2024-04-26] MEDS: PRILOSEC PO SCH (05:15)
[2024-04-26] MEDS: SYNTHROID PO SCH ×2 (05:15)
[2024-04-26] MEDS: LASIX TAB PO SCH ×2 (05:16→08:00)
[2024-04-26 05:48] LABS: BASOPHILS % (AUTO) 0.2 % (0.0-3.0); EOSINOPHILS % (AUTO) 0.4 % (0.0-7.0); HEMATOCRIT 29.7 % (37.0-47.0); HEMOGLOBIN 9.9 g/dl (12.0-16.0); IMMATURE GRANULOCYTE % (AUTO) 0.7 % (0.0-5.0); LYMPHOCYTES # (AUTO) 0.8 K/uL (0.60-3.4); LYMPHOCYTES % (AUTO) 17.9 (10.0-50.0); MEAN CORPUSCULAR HEMOGLOBIN 39.1 pg (27.0-31.0); MEAN CORPUSCULAR HGB CONC 33.3 (31.8-35.4); MEAN CORPUSCULAR VOLUME 117.4 fl (81.0-99.0); MONOCYTES # (AUTO) 0.5 K/uL (0.4-2.0); MONOCYTES % (AUTO) 11.6 (0-10); NEUTROPHILS # (AUTO) 3.1 K/ul (2.0-6.9); NEUTROPHILS % (AUTO) 69.2 % (42.2-75.2); PLATELET COUNT 291 10^3/uL (140-440); RDW COEFFICIENT OF VARIATION 13.1 % (11.6-14.8); RED BLOOD COUNT 2.53 10^6/ul (4.20-5.40); WHITE BLOOD COUNT 4.48 K/ul (4.6-10.2)
[2024-04-26 06:02] LABS: ALANINE AMINOTRANSFERASE 28.5 U/L (0-35); ALBUMIN 3.83 g/dL (3.5-5.0); ALKALINE PHOSPHATASE 50.8 U/L (53-141); ASPARTATE AMINO TRANSFERASE 33.1 U/L (14-36); BILIRUBIN,TOTAL 0.4 mg/dL (0.2-1.3); BLOOD UREA NITROGEN 21.7 mg/dL (7-17); CALCIUM 8.21 mg/dL (8.4-10.2); CARBON DIOXIDE 23.3 mmol/L (22-30.0); CHLORIDE 107.3 mmol/L (98-107); CREATININE 1.02 mg/dL (0.60-1.30); GLUCOSE 94.4 mg/dL (74-106); POTASSIUM 3.88 mmol/L (3.5-5.1); SODIUM 139.2 mmol/L (134.5-145); TOTAL PROTEIN 6.15 g/dL (6.3-8.2)
[2024-04-26] MEDS: LYRICA PO SCH (08:01)
[2024-04-26] MEDS ORDERED: COZAAR PO SCH (09:00)
[2024-04-26] MEDS ORDERED: NON-FORMULARY MEDICATION (Esomeprazole Magnesium 40 mg capsule,delayed release(DR/EC)) PO SCH (09:00)
[2024-04-26] MEDS: ZOLOFT PO SCH (09:12)
[2024-04-26] MEDS: HYDREA PO SCH (10:32)
--- NOTE | 2024-04-26 10:35 | DCSUM ---
Admission Date Admission Date: 04/25/24 Discharge Date Discharge Date: 04/26/24 Admission Diagnosis Admission Diagnosis: 1. Near Syncope 2. Afib 3. Hypertension 4. Transaminitis 5. GERD Discharge Diagnosis Discharge Diagnosis: 1. Near Syncope - No further episodes, hospital work-up negative 2. Afib - Chronic, stable 3. Hypertension - No longer hypertensive 4. Transaminitis - Resolved, likely reactive 5. GERD - Chronic, stable 6. Low TSH - surgical hypothyroidism, adjusted synthroid dose to 125 mcg Hospital Provider Hospital Provider: ALEXANDER LOPEZ [facility], [facility] Primary Care Physician Primary Care Physician: RACHEL OLIVER Summary of History and Physical Summary of History and Physical: 74 yo female presented to the ER following a near syncopal episode. Reports she was blow drying her hair and began to feel dizzy/lightheaded. Decided she needed to lay down to rest. Her neighbor called her shortly after she laid down and reported she was slurring her words. NIH 0 on arrival to ER and at this time. Symptoms have resolved. Denies chest pain, palpitations, vision changes, sob, unilateral weakness, or other symptoms. Per her Epic Chart, she saw Dr. Castillo on 04/10 for dizziness and her BP was 100/68 in the office. He stopped her losartan and she was to see him again in 2 weeks. Has pmh of afib and follows with Dr. Paige at [facility]. Had dizzy episodes back in 2020 and wore a holter monitor that showed multiple episodes of SVT and Vtach. Admitted to med/surg observation. Hospital Course Subjective: During stay, patient has not voiced any other episodes. Bradycardia noted throughout the night. Held coreg due to this. BP also running low. Transaminitis noted on admission, resolved overnight. TSH found to be low as well. Decreased synthroid dose to 125 mcg Echo today showed moderate tricuspid regurg, mild aortic regurg, and L atrial enlargement. EF 54%. Follow up with Dr. Paige in June as scheduled. D/c with Holter monitor x14 days, PCP to read No further changes to home medications unless otherwise noted. Appearance: Pleasant, No Apparent Distress and Alert HEENT: MMM, Supple and No JVD CVS: No Murmur, No Rubs and No Gallop Abdomen: Soft, Non-Tender and No Distention Respiratory: No Dyspnea Extremities: No Edema Vital Signs: Most Recent Vital Signs Temperature 98.6 F 04/26/24 05:18 Temperature Source Oral 04/26/24 05:18 Temperature Source Temporal Artery Scan 04/25/24 13:51 Pulse Rate 59 L 04/26/24 05:18 Respiratory Rate 16 04/26/24 05:18 Blood Pressure 94/49 L 04/26/24 05:18 Blood Pressure Mean 64 04/26/24 05:18 Blood Pressure Left Arm 143/86 04/25/24 17:32 Blood Pressure Location Right Arm 04/26/24 05:18 Blood Pressure Position Supine 04/26/24 05:18 O2 Sat by Pulse Oximetry 98 04/26/24 05:18 Oxygen Delivery Method Room Air 04/26/24 10:00 Height 5 ft 6 in 04/25/24 17:32 Weight 50.9 kg 04/25/24 17:32 Telemetry Type Remote Telemetry 04/26/24 07:00 Telemetry Monitoring Continues 04/26/24 07:00 Telemetry Heart Rate 55 L 04/26/24 07:00 EKG SD Interval 0.19 04/26/24 07:00 EKG QRS Interval 0.08 04/26/24 07:00 Telemetry Strip Reading SB 04/26/24 07:00 Imaging: EXAM: CT HEAD WITHOUT CONTRAST. HISTORY: Altered level of consciousness. PROCEDURE: Contiguous axial CT images of the head without contrast with coronal and sagittal reformats. Comparison: None. FINDINGS: There is diffuse cerebral atrophy. The ventricles and basal cisterns are normal in size and configuration. No evidence of mass or midline shift. No intracranial hemorrhage or evidence of large vessel infarct. No extra-axial fluid collection. There are chronic small vessel ischemic changes in the white matter. The paranasal sinuses and mastoid air cells are normal in appearance. Impression: No intracranial hemorrhage or evidence of large vessel infarct. Chronic small vessel ischemic changes. Diffuse cerebral atrophy. Lab Results Last 24 Hours: 04/26/24 04/25/24 04/25/24 05:43 Unknown 16:41 WBC 4.48 L RBC 2.53 L Hgb 9.9 L Hct 29.7 L MCV 117.4 H MCH 39.1 H MCHC 33.3 RDW Coeff of Karine 13.1 Plt Count 291 Immature Gran % (Auto) 0.7 Neut % (Auto) 69.2 Lymph % (Auto) 17.9 [place] % (Auto) 11.6 H Eos % (Auto) 0.4 Baso % (Auto) 0.2 Neut # (Auto) 3.1 Lymph # (Auto) 0.8 [place] # (Auto) 0.5 Eos # (Auto) 0.0 Baso # (Auto) 0.0 Immature Gran # (Auto) 0.0 PT INR APTT Sodium 139.2 Potassium 3.88 Chloride 107.3 H Carbon Dioxide 23.3 Anion Gap 12.48 BUN 21.7 H Creatinine 1.02 Estimated GFR (MDRD) 53.00 BUN/Creatinine Ratio 21.27 Glucose 94.4 Calcium 8.21 L Total Bilirubin 0.40 AST 33.1 D ALT 28.5 Alkaline Phosphatase 50.8 L Troponin I 0.019 Total Protein 6.15 L Albumin 3.83 Globulin 2.32 Albumin/Globulin Ratio 1.65 TSH < 0.015 L Free T4 SARS CoV-2 RNA Rapid JANAE Negative 04/25/24 04/25/24 15:27 14:27 WBC 8.60 RBC 2.99 L Hgb 11.7 L Hct 34.8 L MCV 116.4 H MCH 39.1 H MCHC 33.6 RDW Coeff of Karine 13.0 Plt Count 356 Immature Gran % (Auto) 1.2 Neut % (Auto) 79.7 H Lymph % (Auto) 8.[address] [place] % (Auto) 10.0 Eos % (Auto) 0.1 Baso % (Auto) 0.2 Neut # (Auto) 6.9 Lymph # (Auto) 0.8 [place] # (Auto) 0.9 Eos # (Auto) 0.0 Baso # (Auto) 0.0 Immature Gran # (Auto) 0.1 PT 9.6 INR 0.92 APTT 23.0 L Sodium 138.6 Potassium 3.85 Chloride 101.5 Carbon Dioxide 26.9 Anion Gap 14.05 BUN 29.0 H Creatinine 1.10 Estimated GFR (MDRD) 49.00 BUN/Creatinine Ratio 26.36 Glucose 108.9 H Calcium 9.07 Total Bilirubin 0.35 AST 75.7 H ALT 35.9 H Alkaline Phosphatase 67.9 Troponin I 0.013 < 0.012 Total Protein 7.70 Albumin 4.76 Globulin 2.94 Albumin/Globulin Ratio 1.61 TSH Free T4 1.27 SARS CoV-2 RNA Rapid JANAE Discharge Instructions Discharge Planning: Discharge Planning > 40 minutes If patient is discharged with left ventricular systolic dysfunction: NA Discharged with a beta ahmet? [] If no, why not? [] Discharged with an alanna/arb? [] If no, why not? [] Diagnosis: Near Syncope Diet: Cardiac Activity: as tolerated Follow-up with PCP next week and Cardiology as scheduled in June. Discuss need for carotid US with PCP. Holter monitor for 14 days Medications: Stop taking Coreg Levothyroxine dose changed from 137 to 125 mcg, new rx sent Discharge Medications: Medications at Discharge (Home Meds & RX) sertraline 100 mg tablet 100 mg PO DAILY 06/26/19 atorvastatin 20 mg tablet 20 mg PO DAILY 04/25/24 calcitriol 0.5 mcg capsule 0.5 mcg PO DAILY 04/25/24 carvedilol 3.125 mg tablet 3.125 mg PO 2XD 04/25/24 cholecalciferol (vitamin D3) 10 mcg (400 unit) tablet (Vitamin D3) 10 mcg PO DAILY 04/25/24 flecainide 50 mg tablet 50 mg PO 2XD 04/25/24 furosemide 40 mg tablet 40 mg PO DAILY 04/25/24 geriatric multivitamin-min 1 tab PO DAILY 04/25/24 hydrocodone 5 mg-acetaminophen 325 mg tablet 0.5 tab PO Q6H PRN pain 04/25/24 hydroxyurea 500 mg capsule 500 mg PO .COMPLEX 04/25/24 latanoprost 0.005 % eye drops 1 drp ophthalmic (eye) QPM 04/25/24 omeprazole magnesium 20 mg tablet,delayed release (Prilosec OTC) 20 mg PO DAILY 04/25/24 pregabalin 50 mg capsule 50 - 100 mg PO BEDTIME 04/25/24 temazepam 15 mg capsule 15 mg PO BEDTIME PRN sleep 04/25/24 Discharge Plan Discharge Discharge Orders: Discharge Patient (ONCE); Ordered 04/26/24 Ordered By: TAWANNA AGUILAR Activity Restrictions/Additional Instructions: Diagnosis: Near Syncope Diet: Cardiac Activity: as tolerated Follow-up with PCP next week and Cardiology as scheduled in June. Discuss need for carotid US with PCP. Holter monitor for 14 days Medications: Stop taking Coreg Levothyroxine dose changed from 137 to 125 mcg, new rx sent Instructions: Near Syncope (GEN) Patient Disposition: HOME SELF-CARE Prescriptions: New levothyroxine 125 mcg capsule 125 mcg PO QDAC2 Qty: 30 0RF Continued sertraline 100 mg Tablet 100 mg PO DAILY latanoprost 0.005 % drops 1 drp ophthalmic (eye) QPM furosemide 40 mg tablet 40 mg PO DAILY atorvastatin 20 mg tablet 20 mg PO DAILY flecainide 50 mg tablet 50 mg PO 2XD pregabalin 50 mg capsule 50 - 100 mg PO BEDTIME temazepam 15 mg capsule 15 mg PO BEDTIME PRN (Reason: sleep) hydrocodone-acetaminophen 5-325 mg tablet 0.5 tab PO Q6H PRN (Reason: pain) hydroxyurea 500 mg capsule 500 mg PO .COMPLEX Rx Instructions: 500 mg orally Sunday, Sunday, Sunday, Sunday, Sunday; calcitriol 0.5 mcg capsule 0.5 mcg PO DAILY geriatric multivitamin-min Tablet 1 tab PO DAILY cholecalciferol (vitamin D3) [Vitamin D3] 10 mcg (400 unit) tablet 10 mcg PO DAILY omeprazole magnesium [Prilosec OTC] 20 mg tablet,delayed release (DR/EC) 20 mg PO DAILY Discontinued carvedilol 3.125 mg tablet 3.125 mg PO 2XD Did you review [place] [employer] for ALL controlled substances?: No Discussed opioids are addictive and Narcan is available by prescription or from pharmacy.: No Condition: Stable
[2024-04-26 10:54] VITALS: BP 157/86; RESP 14; TEMP 96.9
[2024-04-26 13:08] VITALS: PULSE 58
--- NOTE | 2024-04-26 18:24 | ECHO2D ---
Date of Exam: 04/26/2024 Ordering Physician: NORMA SIMONS Room #: 122 Reason for Echo: DIZZINESS, NEAR SYNCOPE, TIA M-Mode Normal Adult Results LV Dimensions Normal Adult Results AoV Opening excursions >1.6 >1.6 LVEDD-base- 3.5-5.8 5.1 Ao root dimensions 2.0-3.7 3.6 LVESD-base- 3.1-4.6 L. Atrium dimensions 1.9-3.8 4.3 Post. Wall thickness 0.8-1.1 1.2 IV septum (thickness) 0.7-1.2 1.0 Post. Wall excursion 0.72-1.3 NORMAL Septal motion NORMAL Systolic motion R. Ventricular cavity 1.5-2.0 NORMAL LVEF 60% 54% Paradoxical septal wall motion NORMAL 2-D : 2-D M Mode Echocardiogram was performed using apical four chamber and left parasternal long and short axis views. Mitral, tricuspid and aortic valves appear to be normal. Contractility of the left ventricle seems to be normal, so is the cavity size. Enlarged Left atrial cavity size. Aortic root appears to be normal. There is no pericardial effusion. There is no thrombus noted in the left ventricle or left atrial cavity. COLOR FLOW: Moderate tricuspid regurgitation, mild to moderate aortic regurgitation, trace to mild mitral regurgitation M-MODE: MV: NORMAL AV: NORMAL TV: NORMAL PV: CHAMBER SIZE: ENLARGED LEFT ATRIAL CAVITY WALL MOTION: NORMAL PERICARDIUM: NORMAL INTERPRETATION: 1. ENLARGED LEFT ATRIAL CAVITY 2. LEFT VENTRICLE SIZE AND LEFT VENTRICLE CONTRACTILITY--NORMAL 3. VALVES--NORMAL BY 2 "D" and "M" MODE 4. COLOR FLOW: MODERATE TRICUSPID REGURGITATION, MILD TO MODERATE AORTIC REGURGITATION AND TRACE TO MILD MITRAL REGURGITATION MTDD
[2024-04-26] MEDS ORDERED: LYRICA PO SCH (21:00)
[2024-04-27] MEDS ORDERED: LASIX TAB PO SCH (06:00)
[2024-04-28] MEDS ORDERED: HYDREA PO SCH (09:00)
== END 2024-04-26 14:00 | disposition home or self-care (01) ==
LOC: ED 13:46 → MEDSURG B 13:46
PROVIDERS: ADMIT Nurse Practitioner Family; ATTEND Hospitalist
DX: R55 Syncope and collapse; E86.0 Dehydration; K21.9 Gastro-esophageal reflux disease without esophagitis; Z51.81 Encounter for therapeutic drug level monitoring; R74.01 Elevation of levels of liver transaminase levels; I10 Essential (primary) hypertension; I51.7 Cardiomegaly; I48.91 Unspecified atrial fibrillation; E89.0 Postprocedural hypothyroidism; Z20.822 Contact with and (suspected) exposure to COVID-19; Z79.899 Other long term (current) drug therapy